=== PATIENT | male | born 1975 | race African-American/Black ===

== ENCOUNTER 2018-07-03 11:51 | Emergency (ER) | payer MEDICAID ==
[~2018-07-03] VITALS: Ht 177.8 cm; Wt 104.5 kg
[2018-07-03] MEDS ORDERED: KETOROLAC TROMETHAMINE 10 MG TABLET PO ONE (13:15)
[2018-07-03 13:33] VITALS: BP 123/71
== END 2018-07-03 13:42 | disposition home or self-care (01) ==
LOC: EMS 11:52
DX: B07.0 Plantar wart (principal); L98.9 Disorder of the skin and subcutaneous tissue, unspecified
CPT/HCPCS: 11000; 99283; 99284

== ENCOUNTER 2019-09-02 06:55 | Emergency (ER) | payer MEDICAID ==
[~2019-09-02] VITALS: Ht 177.8 cm; Wt 90.9 kg
[2019-09-02] MEDS ORDERED: IBUPROFEN 800 MG TABLET PO ONE (08:00)
[2019-09-02 09:08] VITALS: BP 118/74
== END 2019-09-02 09:55 | disposition home or self-care (01) ==
LOC: EMS 06:55
DX: S70.01XA Contusion of right hip, initial encounter (principal); F17.210 Nicotine dependence, cigarettes, uncomplicated; W01.0XXA Fall on same level from slipping, tripping and stumbling without subsequent striking against object, initial encounter; Y93.89 Activity, other specified; Y92.89 Other specified places as the place of occurrence of the external cause; Y99.8 Other external cause status
CPT/HCPCS: 73502; 99406